=== PATIENT | male | born 1985 | race Asian ===

== ENCOUNTER 2017-01-13 23:17 | Emergency (ER) | payer SELFPAY ==
[~2017-01-13] VITALS: Ht 165.1 cm; Wt 65.0 kg
[2017-01-14 00:30] VITALS: BP 119/83
== END 2017-01-14 02:30 | disposition home or self-care (01) ==
LOC: ER 23:17
DX: M25.512 Pain in left shoulder (principal); M54.2 Cervicalgia; M25.522 Pain in left elbow; V89.2XXA Person injured in unspecified motor-vehicle accident, traffic, initial encounter; Y93.89 Activity, other specified; Y99.8 Other external cause status; Y92.89 Other specified places as the place of occurrence of the external cause
CPT/HCPCS: 73030; 73080; 99284; Z7610